=== PATIENT | male | born 1965 | race Caucasian/White ===

== ENCOUNTER 2017-09-12 13:02 | Emergency (ER) | payer MEDICAID ==
--- NOTE | 2017-09-12 13:18 | C.PDOC ---
History Of Present Illness 51 year old male is brought into the ED by ALS with sudden onset of left face, left arm, and left leg paresthesia without weakness. 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 He reports a history of occasional non-positional medial left hand numbness. Patient also reports a mild headache this morning which resolved after taking Advil. Patient denies a history of stroke. He also states his facial and leg numbness was prior to arrival and has since resolved, but he is still experiencing dense numbness of his left arm from his hand to his shoulder. Time Seen by Provider: 09/12/17 13:14 Chief Complaint (Nursing): Weakness/Neurological Deficit History Per: Patient History/Exam Limitations: no limitations Onset/Duration Of Symptoms: Sudden Onset Current Symptoms Are (Timing): Still Present Activity At Onset Of Symptoms: Other (working in "phone store", air-conditioned office space) Associated Symptoms Preceding Syncopal Episode: No Predromal Symptoms (Sudden Onset) Seizure Or Post-ictal Symptoms: None Past Medical History Reviewed: Historical Data, Nursing Documentation, Vital Signs Vital Signs: Last Vital Signs Temp 99.1 F 09/12/17 13:11 Pulse 102 H 09/12/17 13:11 Resp 17 09/12/17 13:11 BP 135/87 09/12/17 13:11 Pulse Ox 100 09/12/17 14:25 - Medical History PMH: No Chronic Diseases Surgical History: No Surg Hx Family History: States: No Known Family Hx - Social History Hx Tobacco Use: No Hx Alcohol Use: No Hx Substance Use: No Review Of Systems Except As Marked, All Systems Reviewed And Found Negative. Neurological: Positive for: Numbness. Negative for: Weakness Physical Exam - Physical Exam Appears: Non-toxic, No Acute Distress Skin: Warm, Dry Head: Atraumatic, Normacephalic Eye(s): bilateral: Normal Inspection, PERRL Nose: Normal Oral Mucosa: Moist Throat: Normal, No Erythema, No Exudate Neck: Normal, Supple Chest: Symmetrical Cardiovascular: Rhythm Regular, No Murmur Respiratory: Normal Breath Sounds, No Rales, No Rhonchi, No Wheezing Gastrointestinal/Abdominal: Normal Exam, Soft, No Tenderness Extremity: Normal ROM, No Tenderness Neurological/Psych: Oriented x3, Normal Speech, Normal Cognition, Normal Cranial Nerves, Normal Motor, Normal Sensation, Normal Reflexes, Other (no focal neuro deficits) Gait: Steady ED Course And Treatment - Laboratory Results Result Diagrams: 09/12/17 13:23 09/12/17 13:23 Lab Interpretation: Normal ECG: Interpreted By Me ECG Rhythm: Sinus Tachycardia ECG Interpretation: Abnormal Rate From EC O2 Sat by Pulse Oximetry: 100 Pulse Ox Interpretation: Normal - Radiology CXR: Interpreted by Me CXR Interpretation: Yes: No Acute Disease - CT Scan/US Head/Neck CTA Other Rad Studies (CT/US): Read By Radiologist, Radiology Report Reviewed CT/US Interpretation: Impressions: Minor calcified plaque changes both carotid bifurcations without significant stenosis. The remaining extracranial and intracranial circulation unremarkable without evidence of occlusion, significant stenosis, large aneurysm nor vascular malformation. CT Head Other Rad Studies (CT/US): Read By Radiologist, Radiology Report Reviewed CT/US Interpretation: Impression: No acute intracranial hemorrhage. Suspect minimal chronic periventricular white matter ischemic changes. Mild generalized volume loss. Note these findings were discussed with Dr. Lyles at approximately 1:30 p.m. Progress Note: neuro exam back to baseline (mild parasthesias of L 4/5th fingers ) no headache. Reevaluation Time: 14:19 Reassessment Condition: Improved - Physician Consult Information Outcome Of Conversation: 1415: d/w Dr. Suárez, Medicine Product Handler- ok to admit. 1430: Dr. Suárez, advised, pt leaving AMA NIHSS Stroke Scale 2 - Date/Time Evaluation Performed Date Performed: 09/12/17 Time Performed: 13:05 When Was NIHSS Performed: Code Stroke - How Severe is the Stroke Level of Consciousness: 1=Drowsy LOC to commands: 0=Obeys both correctly Best Gaze: 0=Normal Visual: 0=No visual loss Facial: 0=Normal Motor Arm - Left: 0=No drift Motor Arm - Right: 0=No drift Motor Leg - Left: 0=No drift Motor Leg - Right: 0=No drift Limb Ataxia: 0=Absent Sensory: 1=Mild to moderate loss (L arm, minimal, with normal function (using cell phone normally)) Best Language: 0=No aphasia Dysarthia: 0=Normal articulation Extinction & Inattention (Neglect): 0=Normal, no object rTPA Inclusion/Exclusion - Refusal of Treatment Patient Refused Treatment: No - Inclusion Criteria for Altepase Patient is 18 years or Older: Yes The Clinical Diagnosis of Ischemic Stroke That is Causing a Potentially Disabling Neurological Deficit: No Time of Onset is Well Established to be Less Than 270 Minute Before Treatment Would Begin: Yes Risk/Benefit Discussed With Patient/Family Member Present: No - Exclusion Criteria for Altepase Uncontrolled Hypertension at Time of Treatment (Systolic BP above 185 or Diastolic BP above 110 mmHg): No Known Bleeding Diathesis Including but Not Limited to: Platelets Below 100,000/ mm,PTT Above 40 sec After Heparin Use, Current Use of Oral Anitcoagulant With INR Greater Than 1.7 or PT Greater Than 15 secs: No Evidence of Major Acute Infarct With Signs Greater Than 1/3 MCA Territory: No Suspicion of Subarachnoid Hemorrhage on Pretreatment Evaluation Even if CT Head Negative For Hemorrhage: No - Warning to TPA With Conditions Following Conditions Weighed Against Anticipated Benefit: Yes Condition: Stroke Serevity Too Mild Medical Decision Making Medical Decision Making: Plan: CTA Head/Neck Code Stroke CT Head w/o (Code Stroke) EKG CMP Hemoglobin A1C Lipid Panel Troponin CVC PTT Prothrombin Time CXR NaCl IV Fluids Urinalysis ? baseline medial L hand parashesias may be radicular. Acute exacerbation included L face, but resolved BATT PACKER Code Stroke w/u and CT's x 2 neg. ASA given Disposition Doctor Will See Patient In The: Office - Disposition Disposition: AGAINST MEDICAL ADVICE Disposition Time: 14:28 Condition: GOOD Forms: [facility] (Moroccan) - Clinical Impression Clinical Impression: Paresthesia of left arm and leg - Scribe Statement The provider has reviewed the documentation as recorded by the Sal Hernandez Provider Attestation: All medical record entries made by the Sal were at my direction and personally dictated by me. I have reviewed the chart and agree that the record accurately reflects my personal performance of the history, physical exam, medical decision making, and the department course for this patient. I have also personally directed, reviewed, and agree with the discharge instructions and disposition.
[2017-09-12 13:20] VITALS: BMI 25.7
[2017-09-12] MEDS ORDERED: Iodixanol 320 MG/ML 100 ML BOTTLE IV ONE (13:24)
[2017-09-12 13:27] LABS: BASO # 0.1 K/uL (0.0-0.2); BASO % 1.2 % (0.0-2.0); EOS # 0.1 K/uL (0.0-0.7); EOS % 1.4 % (0.0-4.0); HEMOGLOBIN 15.6 g/dL (12.0-18.0); LYMPH # 4.1 K/uL (1.0-4.3); MEAN CELL VOLUME 89.9 fL (80.0-94.0); MEAN CORPUSCULAR HGB CONC 34.5 g/dL (33.0-37.0); MEAN PLATELET VOLUME 11.8 fL (7.2-11.7); MONO # 0.8 K/uL (0.0-0.8); MONO % 7.7 % (0.0-10.0); NEUT # 5.1 K/uL (1.8-7.0); NEUT % 49.7 % (50.0-75.0); RBC 5.04 Mil/uL (4.40-5.90); RED CELL DISTRIBUTION WIDTH 14.4 % (11.5-14.5); WHITE BLOOD COUNT 10.3 K/uL (4.8-10.8)
[2017-09-12] MEDS ORDERED: Sodium Chloride 0.9% 1,000 ML IV SCH (13:30)
--- NOTE | 2017-09-12 13:33 | CT ---
PROCEDURE: CT HEAD WITHOUT CONTRAST. HISTORY: Code Stroke COMPARISON: None available. TECHNIQUE: Axial computed tomography images were obtained through the head/brain without intravenous contrast. Radiation dose: Total exam DLP = 929.3 mGy-cm. This CT exam was performed using one or more of the following dose reduction techniques: Automated exposure control, adjustment of the mA and/or kV according to patient size, and/or use of iterative reconstruction technique. FINDINGS: HEMORRHAGE: No acute parenchymal, subarachnoid or extra-axial hemorrhage. BRAIN: There may be some minimal chronic periventricular white matter ischemic changes. . No obvious parenchymal nor extra-axial mass or collection seen on this noncontrast study. Mild generalized volume loss. Minor vascular calcifications both carotid siphons. VENTRICLES: No obstructive hydrocephalus. CALVARIUM: Unremarkable. PARANASAL SINUSES: Minimal mucosal thickening left maxillary antrum. There is also minor mucosal thickening within the ethmoid air complex extending superiorly into the inferior margin of the frontal sinus. MASTOID AIR CELLS: Unremarkable as visualized. No inflammatory changes. OTHER FINDINGS: None. IMPRESSION: No acute intracranial hemorrhage. Suspect minimal chronic periventricular white matter ischemic changes. Mild generalized volume loss Note these findings were discussed with Dr. Lyles at approximately 1:30 p.m.
[2017-09-12 13:34] LABS: INR 1.3; PROTHROMBIN TIME 14.1 SECONDS (9.7-12.2)
[2017-09-12 13:39] LABS: ALB/GLOB RATIO 1.5 (1.0-2.1); ALBUMIN 4.2 g/dL (3.5-5.0); ALT/SGPT 17 U/L (21-72); AST/SGOT 19 U/L (17-59); BLOOD UREA NITROGEN 14 mg/dL (9-20); CALCIUM 9.7 mg/dl (8.6-10.4); GFR AFRICAN-AMERICAN > 60; GFR NON-AFRICAN AMERICAN > 60; HDL CHOLESTEROL 33 mg/dL (30-70)
[2017-09-12 13:50] LABS: LDL CHOLESTEROL 102 mg/dL (0-129)
--- NOTE | 2017-09-12 13:51 | CT ---
PROCEDURE: CT Angiography of the neck brain dated 09/12/2017 HISTORY: Left-sided body paresthesia, no weakness COMPARISON: Correlation with concurrent noncontrast CT scan brain TECHNIQUE: Contiguous axial images of the neck brain performed in standard fashion in the arteriographic phase of enhancement. Coronal and sagittal reformats or also generated. IV contrast dose: 100 cc Visipaque 320 Radiation Dose - DLP: 672.85 mGy-cm This CT exam was performed using one or more of the following dose reduction techniques: Automated exposure control, adjustment of the mA and/or kV according to patient size, and/or use of iterative reconstruction technique. . FINDINGS: Minimal of partially calcified plaque changes seen along the aortic arch. Aortic arch and great vessels otherwise widely patent. Common origin of the right brachiocephalic and left common carotid artery. The common carotid arteries widely patent. Some very tiny calcified plaque changes seen along medial and posteromedial margins of the right and left carotid bifurcations. No significant stenosis. The distal internal carotid arteries, including the petrous, cavernous and supraclinoid segments widely patent. Some minor calcified plaque seen along cavernous segments. The vertebral arteries are patent throughout . Vertebral arteries are relatively symmetric in caliber. Basilar artery is patent. Major branches of the [place] are patent. The distal anterior, middle and posterior cerebral arteries are patent and symmetric. No evidence of large aneurysm nor vascular malformation IMPRESSION: Minor calcified plaque changes both carotid bifurcations without significant stenosis. The remaining extracranial and intracranial circulation unremarkable without evidence of occlusion, significant stenosis, large aneurysm nor vascular malformation.
[2017-09-12] MEDS ORDERED: Aspirin 325 mg EC Tablets PO STA (14:03)
[2017-09-12] MEDS ORDERED: Sodium Chloride 0.9% 1,000 ML ONE (14:24)
[2017-09-12 14:38] VITALS: BP 145/73; PULSE 76; RESP 18; TEMP 98; O2SAT 98
--- NOTE | 2017-09-14 23:27 | CARD ---
APPROVED REPORT EKG Measurement Heart [id number] <Conclusion> Sinus tachycardia Possible Left atrial enlargement Borderline ECG
== END 2017-09-12 14:38 | disposition left against medical advice (07) ==
LOC: C.ER 13:02
DX: R20.2 Paresthesia of skin (principal)
CPT/HCPCS: 70450; 70496; 70498; 80053; 80061; 82948; 83036; 84484; 85025; 85610; 85730; 99285; Q9967